=== PATIENT | male | born 1975 | race Caucasian/White ===

== ENCOUNTER 2017-01-04 10:32 | Emergency (ER) | payer OTHER ==
[~2017-01-04] VITALS: Ht 172.7 cm; Wt 125.0 kg
[2017-01-04] MEDS ORDERED: SODIUM CHLORIDE 0.9% 1,000 ML IV ONE (11:08)
[2017-01-04] MEDS ORDERED: MORPHINE SULFATE 4 MG/ML, 1ML ONE ×2 (11:18→13:44)
[2017-01-04] MEDS ORDERED: FAMOTIDINE 20 MG/2 ML ONE (11:18)
[2017-01-04] MEDS ORDERED: ONDANSETRON 2MG/ML, 2ML ONE (11:18)
[2017-01-04] MEDS: MORPHINE SULFATE 4 MG/ML, 1ML IVPush PRN ×2 (11:23→13:46)
[2017-01-04] MEDS ORDERED: ONDANSETRON 2MG/ML, 2ML IVPush ONE (11:30)
[2017-01-04] MEDS ORDERED: SODIUM CHLORIDE 0.9% 1,000ML IVBOLUS ONE (11:30)
[2017-01-04] MEDS ORDERED: SODIUM CHLORIDE FLUSH 10ML SYR IVF ONE (11:30)
[2017-01-04] MEDS ORDERED: FAMOTIDINE 20 MG/2 ML IVP ONE (11:30)
[2017-01-04 12:00] LABS: HEMATOCRIT 47.2 % (39.2-51.8); HEMOGLOBIN 15.8 g/dL (13.7-18.0); WHITE BLOOD COUNT 8.5 x10^3/uL (3.4-10)
[2017-01-04 12:13] LABS: IS PT STATUS REG ER OR PRE ER? YES
[2017-01-04 12:20] LABS: ASPARTATE AMINO TRANSFERASE 102 U/L (15-37); BLOOD UREA NITROGEN 9 mg/dL (7-18)
[2017-01-04 13:19] VITALS: BP 155/113
== END 2017-01-04 15:33 ==
LOC: ED 10:37
DX: K85.90 Acute pancreatitis without necrosis or infection, unspecified (principal); R74.0 Nonspecific elevation of levels of transaminase and lactic acid dehydrogenase [LDH]; F17.210 Nicotine dependence, cigarettes, uncomplicated; I10 Essential (primary) hypertension
CPT/HCPCS: 36415; 74022; 74176; 76700; 80053; 81001; 83690; 84484; 85025; 86704; 86706; 86708; 86803; 87086; 87340; 93005; 96361; 96374; 96375; 96376; 99285; J2405; J7030; S0028

== ENCOUNTER 2017-04-30 19:35 | Inpatient (IN) | payer OTHER ==
[~2017-04-30] VITALS: Ht 172.7 cm; Wt 126.3 kg
[2017-04-30 20:56] LABS: BASOPHILS # (AUTO) 0.03 x10^3/uL (0-0.1); BASOPHILS % (AUTO) 0 % (0-1); EOSINOPHILS # (AUTO) 0.22 x10^3/uL (0-0.4); EOSINOPHILS % (AUTO) 3 % (1-7); LYMPHOCYTES # (AUTO) 1.75 x10^3/uL (1-3.4); LYMPHOCYTES % (AUTO) 26 % (22-44); MD NO; MEAN CORPUSCULAR HEMOGLOBIN 33.9 pg (27.5-34.5); MEAN CORPUSCULAR HGB CONC 34.9 g/dL (33.2-36.2); MEAN CORPUSCULAR VOLUME 97.2 fL (81-97); MEAN PLATELET VOLUME 7.6 fL (7.4-10.4); MONOCYTES # (AUTO) 0.71 x10^3/uL (0.2-0.8); MONOCYTES % (AUTO) 11 % (2-9); NEUTROPHILS # (AUTO) 4.08 x10^3/uL (1.8-6.8); NEUTROPHILS % (AUTO) 60 % (42-75); PLATELET COUNT 270 x10^3/uL (130-400); RED BLOOD COUNT 5.29 x10^6/uL (4.38-5.82); RED CELL DISTRIBUTION WIDTH 13.7 % (9.4-14.8)
[2017-04-30] MEDS ORDERED: ONDANSETRON 2MG/ML, 2ML IVPush ONE (21:00)
[2017-04-30] MEDS ORDERED: KETOROLAC 30 MG/1 ML IVPush ONE (21:00)
[2017-04-30] MEDS ORDERED: MORPHINE SULFATE 4 MG/ML, 1ML ONE ×2 (21:08→22:32)
[2017-04-30] MEDS ORDERED: KETOROLAC 30 MG/1 ML ONE (21:08)
[2017-04-30] MEDS ORDERED: ONDANSETRON 2MG/ML, 2ML ONE (21:08)
[2017-04-30] MEDS: MORPHINE SULFATE 4 MG/ML, 1ML IVPush PRN ×3 (21:11→22:35)
[2017-04-30 21:28] LABS: ALBUMIN 3.7 g/dL (3.4-5.0); ANION GAP 11 mmol/L (5-15); CALCIUM 8.1 mg/dL (8.5-10.1); CHLORIDE 106 mmol/L (98-107); CREATININE 1.05 mg/dL (0.7-1.3)
[2017-04-30 21:32] LABS: TROPONIN I < 0.015 ng/mL (0.000-0.045)
[2017-04-30] MEDS ORDERED: DIPHENHYDRAMINE 50 MG/ML, 1ML ONE (21:46)
[2017-04-30] MEDS ORDERED: methylPREDNISolone SOD SUCC 125 MG/2 ML ONE (21:47)
[2017-04-30] MEDS ORDERED: SODIUM CHLORIDE 0.9% 1,000ML IVBOLUS ONE (22:00)
[2017-04-30] MEDS ORDERED: methylPREDNISolone SOD SUCC 125 MG/2 ML IVPush ONE (22:00)
[2017-04-30] MEDS ORDERED: DIPHENHYDRAMINE 50 MG/ML, 1ML IVPush ONE (22:00)
[2017-04-30] MEDS ORDERED: OMNIPAQUE 350 MG/ML, 100ML BOTTLE ONE (22:28)
[2017-04-30] MEDS ORDERED: LORazepam 2 MG/ML, 1ML IVPush ONE (23:00)
[2017-04-30] MEDS ORDERED: LORazepam 2 MG/ML, 1ML ONE (23:15)
[2017-05-01] MEDS ORDERED: hydrALAzine 20 MG/ML, 1ML IV ONE
[2017-05-01] MEDS ORDERED: hydrALAzine 20 MG/ML, 1ML ONE (00:15)
[2017-05-01] MEDS ORDERED: NITROGLYCERIN 0.4 MG BOTTLE (25 TABS) SL PRN (00:30)
[2017-05-01] MEDS ORDERED: ACETAMINOPHEN 325 MG TABLET PO PRN (00:30)
[2017-05-01] MEDS ORDERED: BISACODYL 10 MG SUPP PR PRN (00:30)
[2017-05-01] MEDS ORDERED: ONDANSETRON 2MG/ML, 2ML IVPush PRN (00:30)
[2017-05-01] MEDS ORDERED: NICOTINE 14MG/24 HR PATCH.TD24 TD SCH (00:30)
[2017-05-01] MEDS: HEPARIN 5,000 UNITS/ML, 1ML SQ SCH ×2 (00:30→08:09)
[2017-05-01] MEDS ORDERED: POLYETHYLENE GLYCOL 17 GM PACKET PO PRN (00:30)
[2017-05-01 00:45] VITALS: BP 156/102
[2017-05-01] MEDS ORDERED: HEPARIN 5,000 UNITS/ML, 1ML ONE (01:08)
[2017-05-01] MEDS ORDERED: NICOTINE 14MG/24 HR PATCH.TD24 ONE (01:08)
[2017-05-01] MEDS: morphine SULFATE 10 MG/ML, 1ML IVPush PRN ×3 (01:11→08:08)
[2017-05-01 02:01] VITALS: BP 171/114
[2017-05-01] MEDS: hydrALAzine 20 MG/ML, 1ML IVPush PRN ×2 (02:15→08:09)
[2017-05-01] MEDS ORDERED: LORazepam 2 MG/ML, 1ML IVPush ONE (02:30)
[2017-05-01 03:31] LABS: TROPONIN I < 0.015 ng/mL (0.000-0.045)
[2017-05-01 04:08] LABS: FOLATE LEVEL 15.5 ng/mL (3.1-17.5); FREE T4 (FREE THYROXINE) 0.83 ng/dL (0.76-1.46); THYROID STIMULATING HORMONE 0.465 mIU/L (0.358-3.740)
[2017-05-01] MEDS ORDERED: ASPIRIN 325 MG TABLET EC PO SCH (06:00)
[2017-05-01 07:47] VITALS: BP_SYST 174; BP_SYST 192; BP_DIAS 103; BP_DIAS 123
[2017-05-01] MEDS ORDERED: SODIUM CHLORIDE FLUSH 10ML SYR IVF SCH (09:00)
[2017-05-01] MEDS ORDERED: SENNA/DOCUSATE TABLET PO SCH (09:00)
[2017-05-01 09:09] LABS: TROPONIN I < 0.015 ng/mL (0.000-0.045)
== END 2017-05-01 11:14 | disposition home or self-care (01) | DRG 392 ==
LOC: ED 23:06 → EDIP 23:45 → 5SO 05-01 00:45 → DCLOUNGE 05-01 11:08
PROVIDERS: ADMIT Surgery; ATTEND Internal Medicine
DX: K21.9 Gastro-esophageal reflux disease without esophagitis (principal); D75.89 Other specified diseases of blood and blood-forming organs; F17.210 Nicotine dependence, cigarettes, uncomplicated; F41.9 Anxiety disorder, unspecified; I10 Essential (primary) hypertension; I16.0 Hypertensive urgency; E66.9 Obesity, unspecified; Z80.7 Family history of other malignant neoplasms of lymphoid, hematopoietic and related tissues
CPT/HCPCS: 36415; 71275; 80048; 82040; 82607; 82746; 84439; 84443; 84484; 85025; 85379; 93005; J1644; J1885; J2405; Q9967; J0360; J1200; J2060; J2270; J2930; J7030